=== PATIENT | male | born 1965 | race Caucasian/White ===

== ENCOUNTER 2022-07-29 21:47 | Inpatient (IN) | payer BC ==
[~2022-07-29] VITALS: Ht 177.8 cm; Wt 63.5 kg
[2022-07-29] MEDS ORDERED: IV NORMAL SALINE 1000 ML BAG IV ONE ×2 (22:00→22:45)
[2022-07-29] MEDS ORDERED: ONDANSETRON 4 MG/2 ML VIAL IV ONE (22:00)
[2022-07-29] MEDS ORDERED: ACETAMINOPHEN ES 500 MG TABLET PO ONE (22:00)
[2022-07-29 22:15] LABS: MEAN CORPUSCULAR HEMOGLOBIN 35.3 uug (23.8-33.4); MEAN CORPUSCULAR VOLUME 105.5 fL (73.0-96.2); PLATELET COUNT (AUTO) 389 K/uL (152-348)
[2022-07-29 22:28] LABS: BILIRUBIN,DIRECT 0.1 mg/dL (0.0-0.2); BILIRUBIN,TOTAL 0.7 mg/dL (0.2-1.0); CREATININE 1.7 mg/dL (0.6-1.3); POTASSIUM 4.8 mmol/L (3.5-5.1); TOTAL PROTEIN, SERUM 8.1 g/dL (6.4-8.2)
[2022-07-29] MEDS ORDERED: ACETAMINOPHEN ES 500 MG TABLET ONE (22:39)
[2022-07-29] MEDS ORDERED: ONDANSETRON 4 MG/2 ML VIAL ONE (22:39)
[2022-07-29] MEDS ORDERED: POTASSIUM CHLORIDE 20 MEQ TAB.PRT.SR PO ONE (22:45)
[2022-07-29] MEDS ORDERED: INSULIN REGULAR, HUMAN 300 UNIT/3 ML VIAL IV ONE (22:45)
[2022-07-29] MEDS ORDERED: INSULIN REGULAR, HUMAN 300 UNIT/3 ML VIAL ONE (22:53)
[2022-07-29] MEDS ORDERED: POTASSIUM CHLORIDE 20 MEQ TAB.PRT.SR ONE (22:53)
[2022-07-29] MEDS ORDERED: BICT1TAB PO (23:14)
--- NOTE | 2022-07-29 23:15 | NUR ---
Pt states doesn't remember names of his HTN, high cholesterol, and anti depressant medications. Needs further follow up.
[2022-07-29 23:27] LABS: *BILIRUBIN,URIN 1+ (NEGATIVE); *BLOOD, URINE 2+ (NEGATIVE); *CLARITY,URINE CLEAR (CLEAR); *COLOR,URINE YELLOW (YELLOW); *KETONES,URINE 4+ (NEGATIVE); *UROBILINOGEN,URINE 0.2 E.U./dl (NORMAL); LEUKOCYTE ESTERASE ,URINE TRACE (NEGATIVE); NITRITE, URINE NEGATIVE (NEGATIVE); PH,URINE 5.5 (5.0-8.0); UGLUCOSE 2+ (NEGATIVE)
[2022-07-30 00:38] LABS: BACTERIA,URINE NONE SEEN /HPF (NONE SEEN); SQUAMOUS EPITHELIAL CELL,UR FEW /HPF (NONE SEEN); WBC,URINE TNTC /HPF (0-3)
--- NOTE | 2022-07-30 01:23 | NUR ---
Called [facility] for panel call. Jacey application packaging specialist. Waiting for call back.
--- NOTE | 2022-07-30 01:38 | NUR ---
Dr. Garcia on panel call with Swathi Maravilla NP.
[2022-07-30] MEDS ORDERED: IV NS 1000 ML 1,000 ML IV PRN (01:45)
[2022-07-30] MEDS ORDERED: ACETAMINOPHEN 650 MG SUPP.RECT RC PRN (01:45)
[2022-07-30] MEDS ORDERED: INSULIN REGULAR, HUMAN 100 UNIT in IV NORMAL SALINE 99 ML IV PRN ×2 (01:45)
--- NOTE | 2022-07-30 01:47 | NUR ---
Patient has been admitted by Dr. Mari.
--- NOTE | 2022-07-30 02:00 | NUR ---
Per oracle data warehouse developer, no ICU beds avaliable. Patient will be held in the ER. ER charting will be done.
--- NOTE | 2022-07-30 02:15 | NUR ---
Patient ambulated to the bathroom independently. Patient stated he had a large yellow void.
[2022-07-30 02:22] LABS: CREATININE 1.2 mg/dL (0.6-1.3); POTASSIUM 4.7 mmol/L (3.5-5.1)
[2022-07-30 02:25] LABS: MAGNESIUM 1.8 mg/dL (1.8-2.4); PHOSPHOROUS 3.1 mg/dL (2.5-4.9)
[2022-07-30] MEDS ORDERED: CEFTRIAXONE /D5W 50ML IVPB **ER PYXIS IV ONE (02:40)
[2022-07-30] MEDS ORDERED: ENOXAPARIN SODIUM 40 MG/0.4 ML DISP.SYRIN SQ ONE (02:40)
[2022-07-30] MEDS: ENOXAPARIN SODIUM 40 MG/0.4 ML DISP.SYRIN SQ SCH ×2 (02:45→21:02)
[2022-07-30] MEDS: CEFTRIAXONE 1 G in IV DEXTROSE 5% 50 ML IV SCH (02:55)
[2022-07-30] MEDS ORDERED: INSULIN REGULAR, HUMAN 300 UNIT/3 ML VIAL ONE (03:29)
[2022-07-30] MEDS ORDERED: INSULIN REGULAR, HUMAN 100 UNIT in IV NORMAL SALINE 100 ML IV ONE ×2 (04:15)
--- NOTE | 2022-07-30 04:38 | NUR ---
Faxed over insulin drip form to pharmacy. Awaiting approval.
--- NOTE | 2022-07-30 04:57 | NUR ---
Called pharmacy for insulin drip approval. Pending approval.
--- NOTE | 2022-07-30 06:00 | NUR ---
Humulin R 100 unit in IV Sodium Chloride 0.9% 99ml reconstituted and started at 0558am. 2 RN verification prior to administration (Charge Nurse Jhon Cochran RN). Insulin drip running @ 5.74 units/hr Accucheck 287
--- NOTE | 2022-07-30 06:18 | NUR ---
Patient voided 450ml
--- NOTE | 2022-07-30 06:35 | NUR ---
IV 20g placed to right hand
--- NOTE | 2022-07-30 06:43 | NUR ---
Duplicate order for Insulin drip @04:15. Marked as not given.
[2022-07-30 06:45] LABS: HEMATOCRIT 36.4 % (36.7-47.1); MEAN CORPUSCULAR VOLUME 105.5 fL (73.0-96.2); PLATELET COUNT (AUTO) 349 K/uL (152-348)
[2022-07-30 07:00] LABS: BILIRUBIN,DIRECT 0.1 mg/dL (0.0-0.2); BILIRUBIN,TOTAL 0.5 mg/dL (0.2-1.0); CREATININE 1.3 mg/dL (0.6-1.3); MAGNESIUM 1.9 mg/dL (1.8-2.4); PHOSPHOROUS 2.4 mg/dL (2.5-4.9); POTASSIUM 4.7 mmol/L (3.5-5.1)
[2022-07-30] MEDS: BLOOD SUGAR DIAGNOSTIC 1 EACH STRIP VI SCH ×8 (07:00→21:10)
--- NOTE | 2022-07-30 07:00 | NUR ---
Accucheck 227 @0700. Insulin drip running @ 4.54 units/hr
--- NOTE | 2022-07-30 07:26 | NUR ---
Report give to Katie BUCHANAN
--- NOTE | 2022-07-30 07:30 | NUR ---
Placed pt on monitor. V/S: BP = 154/65, HR = 69, RR = 18, O2 Sat = 96%. No signs of lethargy, denies n/v and dizziness.
--- NOTE | 2022-07-30 07:30 | NUR ---
Received report from Taty BUCHANAN.
[2022-07-30 08:27] LABS: THYROID STIMULATING HORMONE 2.42 mIU/mL (0.358-3.740)
--- NOTE | 2022-07-30 08:30 | NUR ---
Blood glucose 151 - reduced insulin gtts drip to 3.02.
[2022-07-30] MEDS ORDERED: PANTOPRAZOLE SODIUM 40 MG VIAL ONE (09:08)
--- NOTE | 2022-07-30 09:30 | NUR ---
Blood glucose is 137, reduced insulin drip to 2.74. Ordered stat BMP per BOILER MECHANIC's standing order.
[2022-07-30] MEDS: PANTOPRAZOLE SODIUM 40 MG VIAL IV SCH (09:31)
--- NOTE | 2022-07-30 09:45 | NUR ---
Paged Dr. Naylor to inform about changing the dose of insulin drip to 2.74, blood glucose was 137. No call back yet.
--- NOTE | 2022-07-30 10:00 | NUR ---
Blood glucose was 93. Held insulin drip, changed NS to D5 1/2 NS @ 175ml/hr. Stat BMP ordered per protocol. BP = 126/68, HR = 70. Pt experiencing mild headache. Paged [facility] and txted Dr. Naylor. Pending call back.
[2022-07-30] MEDS ORDERED: IV D5W-0.45% NS +20 KCL 1,000 ML IV PRN (10:15)
[2022-07-30 10:20] LABS: CREATININE 1.1 mg/dL (0.6-1.3); MAGNESIUM 1.8 mg/dL (1.8-2.4); PHOSPHOROUS 1.4 mg/dL (2.5-4.9); POTASSIUM 3.8 mmol/L (3.5-5.1)
--- NOTE | 2022-07-30 10:28 | NUR ---
Dr. Gomez verbal order of BMP in 1hr. If Bicarb >20, stop insulin drip and give lantus 10units x 1. Also order sliding scale moderate ACS.
[2022-07-30] MEDS ORDERED: D5W IV ONE (10:45)
[2022-07-30] MEDS ORDERED: [UNRECOGNIZED DRUG - OTHER] IV ONE (10:45)
[2022-07-30] MEDS ORDERED: KCL IV ONE (10:45)
[2022-07-30] MEDS ORDERED: MISCELLANEOUS MED XX PRN (11:00)
[2022-07-30] MEDS ORDERED: ONDANSETRON 4 MG/2 ML VIAL ONE (11:16)
[2022-07-30] MEDS: ONDANSETRON 4 MG/2 ML VIAL IV PRN ×3 (11:22→11:56)
[2022-07-30 11:27] LABS: CREATININE 1.1 mg/dL (0.6-1.3); POTASSIUM 4.2 mmol/L (3.5-5.1)
--- NOTE | 2022-07-30 11:55 | NUR ---
Informed Dr. Gomez, bicarb is 21. Ordered to stop insulin rip, give lantus 10 units x1, sliding scale moderate achs, complete infusing D5 1/2 NS with 20 meqs potassium and stop fluids if pt is tolerating full liquid diet. Orders noted and carried out. Informed pharmacy as well, pharmacist Scotty was notified.
[2022-07-30] MEDS ORDERED: INSULIN REGULAR, HUMAN 300 UNIT/3 ML VIAL SQ PRN (12:00)
[2022-07-30] MEDS ORDERED: INSULIN GLARGINE,HUM 300 UNITS/3 ML CARTRIDGE SQ ONE ×2 (12:00→12:09)
[2022-07-30] MEDS ORDERED: INSULIN REGULAR, HUMAN 300 UNITS/3 ML VIAL SQ PRN (12:00)
[2022-07-30] MEDS ORDERED: INSULIN GLARGINE,HUM 300 UNITS/3 ML CARTRIDGE SQ SCH (12:00)
[2022-07-30] MEDS ORDERED: DEXTROSE 50% 50 ML DISP.SYRIN IV PRN ×2 (12:00)
--- NOTE | 2022-07-30 14:04 | NUR ---
Blood glucose is 305 mg/dL, held D5 .45NS with [address] Gomez.
[2022-07-30 14:13] LABS: CREATININE 1.3 mg/dL (0.6-1.3); MAGNESIUM 1.9 mg/dL (1.8-2.4); PHOSPHOROUS 2.4 mg/dL (2.5-4.9)
[2022-07-30] MEDS: INSULIN REGULAR, HUMAN 300 UNIT/3 ML VIAL SQ PRN (14:14)
--- NOTE | 2022-07-30 14:30 | NUR ---
Per MD's order, cancel D5 .45%NS with 20meqs potassium and gave 12 units of regular insulin per sliding scale.
[2022-07-30] MEDS ORDERED: NEUTRA PHOS PACKET PO ONE (15:30)
--- NOTE | 2022-07-30 16:10 | NUR ---
Patient is still waiting for an available CCU nurse and bed at this time.
--- NOTE | 2022-07-30 17:44 | NUR ---
Gave report to Lavinia BUCHANAN. Pt will be assigned to room ICU 2.
[2022-07-30 18:07] LABS: CREATININE 1.2 mg/dL (0.6-1.3); POTASSIUM 4.3 mmol/L (3.5-5.1)
[2022-07-30 18:11] LABS: MAGNESIUM 1.8 mg/dL (1.8-2.4); PHOSPHOROUS 1.7 mg/dL (2.5-4.9)
--- NOTE | 2022-07-30 18:35 | NUR ---
Pt transported to CCU 2 via hospital bed, accompanied by 2 RNs, under the medical care of Dr. Shelly Gomez. Pt in stable condition, V/S ALEXANDERLmohsen AOx4, denies headache, blurry vision, n/v. Received by Lavinia BUCHANAN. Addendum: 07/30/22 at 1901 by EWELINA Pt transported to CCU 2 via hospital bed, accompanied by 2 RNs, under the medical care of Dr. Shelly Gomez. Pt in guarded condition, V/S WNLmohsen AOx4, denies headache, blurry vision, n/v. Received by Lavinia BUCHANAN. BP = 100/58 HR = 79 RR = 20 O2 SAT = 95%
[2022-07-30 18:58] VITALS: BP 144/58
--- NOTE | 2022-07-30 19:00 | NUR ---
RECEIVED IN BED , ABLE TO MAKE NEEDS KNOWN ALL ORDERS NOTED, BLOOD SUGAR IS 217MG/DL 4 UNITS GIVEN. NO SIGNS OF DISTRESS.
[2022-07-30 20:00] VITALS: BP 121/78
[2022-07-30 21:00] VITALS: BP 102/71
[2022-07-30] MEDS: INSULIN REGULAR, HUMAN 300 UNITS/3 ML VIAL SQ PRN (21:06)
[2022-07-30 22:00] VITALS: BP 111/70
[2022-07-30 22:20] LABS: CREATININE 1.1 mg/dL (0.6-1.3); MAGNESIUM 1.8 mg/dL (1.8-2.4); PHOSPHOROUS 1.9 mg/dL (2.5-4.9)
[2022-07-30 23:00] VITALS: BP 111/46
[2022-07-31] VITALS (7 sets, daily range): BP systolic 111–151; BP diastolic 54–78
[2022-07-31] MEDS ORDERED: CEFTRIAXONE /D5W 50ML IVPB **ER PYXIS IV ONE (02:16)
[2022-07-31] MEDS: CEFTRIAXONE 1 G in IV DEXTROSE 5% 50 ML IV SCH (02:35)
[2022-07-31 05:02] LABS: HEMATOCRIT 33.5 % (36.7-47.1); MEAN CORPUSCULAR HEMOGLOBIN 35.1 uug (23.8-33.4); MEAN CORPUSCULAR VOLUME 103.5 fL (73.0-96.2); PLATELET COUNT (AUTO) 293 K/uL (152-348)
[2022-07-31 05:14] LABS: CREATININE 1.1 mg/dL (0.6-1.3); POTASSIUM 3.9 mmol/L (3.5-5.1)
[2022-07-31 05:20] LABS: BILIRUBIN,TOTAL 0.2 mg/dL (0.2-1.0); MAGNESIUM 1.7 mg/dL (1.8-2.4); PHOSPHOROUS 2.1 mg/dL (2.5-4.9); TOTAL PROTEIN, SERUM 6.5 g/dL (6.4-8.2)
[2022-07-31] MEDS: BLOOD SUGAR DIAGNOSTIC 1 EACH STRIP VI SCH ×4 (07:30→21:48)
[2022-07-31] MEDS: PANTOPRAZOLE SODIUM 40 MG VIAL IV SCH (09:04)
[2022-07-31] MEDS: INSULIN REGULAR, HUMAN 300 UNIT/3 ML VIAL SQ PRN ×2 (09:08→12:20)
[2022-07-31] MEDS ORDERED: MAGNESIUM OXIDE 400 MG TABLET PO ONE (10:30)
[2022-07-31] MEDS: INSULIN GLARGINE,HUM 300 UNITS/3 ML CARTRIDGE SQ SCH ×2 (12:21→21:40)
[2022-07-31] MEDS ORDERED: SODIUM PHOSPHATE MM 15 MMOL in IV NORMAL SALINE 250 ML IV ONE (16:30)
[2022-07-31] MEDS: INSULIN REGULAR, HUMAN 300 UNITS/3 ML VIAL SQ PRN (21:38)
[2022-07-31] MEDS: ENOXAPARIN SODIUM 40 MG/0.4 ML DISP.SYRIN SQ SCH (21:47)
[2022-07-31] MEDS ORDERED: INSULIN GLARGINE,HUM 300 UNITS/3 ML CARTRIDGE SQ ONE (22:30)
[2022-07-31] MEDS ORDERED: INSULIN REGULAR, HUMAN 300 UNIT/3 ML VIAL SQ ONE (22:30)
--- NOTE | 2022-07-31 22:33 | NUR ---
Bedtime BS 457, given Humulin R and Lantus as ordered. Recheck BS-[id number] Hammond with orders to give 15 more units Humulin R and 8 units Lantus, noted and carried out. Continue to monitor.
[2022-08-01] VITALS: BP 134/79
[2022-08-01] MEDS: CEFTRIAXONE 1 G in IV DEXTROSE 5% 50 ML IV SCH (02:06)
[2022-08-01 04:00] VITALS: BP 140/78
[2022-08-01] MEDS: BLOOD SUGAR DIAGNOSTIC 1 EACH STRIP VI SCH ×3 (06:34→16:30)
[2022-08-01] MEDS ORDERED: PANTOPRAZOLE SODIUM 40 MG TABLET.DR PO SCH (07:00)
[2022-08-01 07:39] LABS: CREATININE 0.9 mg/dL (0.6-1.3); MAGNESIUM 1.7 mg/dL (1.8-2.4); PHOSPHOROUS 3.1 mg/dL (2.5-4.9); POTASSIUM 3.2 mmol/L (3.5-5.1)
[2022-08-01 08:00] VITALS: BP_SYST 148; BP_SYST 150; BP_DIAS 62; BP_DIAS 75
[2022-08-01] MEDS ORDERED: Bictegrav/Emtricit/Tenofov Ala (Biktarvy 50-200-25 mg Ta PO SCH (09:00)
[2022-08-01] MEDS ORDERED: POTASSIUM CHLORIDE 20 MEQ TAB.PRT.SR PO ONE (09:15)
[2022-08-01] MEDS: INSULIN REGULAR, HUMAN 300 UNIT/3 ML VIAL SQ PRN ×3 (10:15→18:05)
[2022-08-01] MEDS: INSULIN GLARGINE,HUM 300 UNITS/3 ML CARTRIDGE SQ SCH (10:17)
[2022-08-01] MEDS: MAGNESIUM SULFATE/D5W 100 ML IV SCH ×2 (10:18→11:41)
[2022-08-01 12:00] VITALS: BP 132/72
[2022-08-01 16:00] VITALS: BP 128/80
[2022-08-01] MEDS ORDERED: PNEUMOCOCCAL 23-VAL P-SAC VAC 0.5 ML VIAL IM ONE (18:30)
--- NOTE | 2022-08-01 19:04 | NUR ---
DISCHARGE INSTRUCTIONS GIVEN TO PT..PT STATED HE UNDERSTOOD DISCHARGE INSTRUCTIONS..PT STATED A FRIEND WILL PICK HIM UP.. PT LEFT UNIT IN STABLE CONDITION..
== END 2022-08-01 19:10 | disposition home or self-care (01) | DRG 919 ==
LOC: ER 21:54 → TRANSITION 07-30 02:02 → CCU 07-30 18:07 → TELE3 07-31 07:45 → MEDSURG3 08-01 10:10
PROVIDERS: ADMIT Registered Nurse
DX: T85.614A Breakdown (mechanical) of insulin pump, initial encounter (principal); E11.10 Type 2 diabetes mellitus with ketoacidosis without coma; N17.0 Acute kidney failure with tubular necrosis; N39.0 Urinary tract infection, site not specified; E86.0 Dehydration; E87.6 Hypokalemia; Y74.2 Prosthetic and other implants, materials and accessory general hospital and personal-use devices associated with adverse incidents; Y92.009 Unspecified place in unspecified non-institutional (private) residence as the place of occurrence of the external cause; F17.210 Nicotine dependence, cigarettes, uncomplicated; Z79.4 Long term (current) use of insulin; E78.5 Hyperlipidemia, unspecified; Z20.822 Contact with and (suspected) exposure to COVID-19; Z79.899 Other long term (current) drug therapy; Z71.6 Tobacco abuse counseling; B96.89 Other specified bacterial agents as the cause of diseases classified elsewhere
CPT/HCPCS: 36415; 83690; 83735; 84100; 84443; 85025; 90732; A4663; A9150; C9113; G0378; J0696; J1650; J1815; J2405; J3475; J3490; J7040